=== PATIENT | male | born 1965 | race African-American/Black ===

== ENCOUNTER 2016-08-01 23:40 | Emergency (ER) ==
[2016-08-02] MEDS ORDERED: TORADOL PO ONE (00:41)
[2016-08-02] MEDS ORDERED: PEPCID PO ONE (00:41)
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
[2016-08-02 01:03] VITALS: BP 160/105
--- NOTE | 2016-08-02 09:15 | Diag Imaging Result Document ---
PROCEDURE NAME: SHOULDER-LEFT - 08/01/2016 PLAIN RADIOGRAPH OF THE LEFT SHOULDER 4 VIEWS: COMPARISON: Left clavicle radiograph dated 02/01/2014. FINDINGS: There are mild degenerative changes at the AC joint, stable. There is no definite fracture, dislocation, or intrinsic osseous lesion, otherwise. Surrounding soft tissues are essentially unremarkable. IMPRESSION: Stable degenerative changes involving the AC joint. No definite acute osseous abnormality.
== END 2016-08-02 01:02 | disposition home or self-care (01) ==
LOC: ED 23:40
DX: M25.512 Pain in left shoulder (principal); Y04.0XXA Assault by unarmed brawl or fight, initial encounter; F17.210 Nicotine dependence, cigarettes, uncomplicated; Z71.6 Tobacco abuse counseling; Z79.51 Long term (current) use of inhaled steroids
CPT/HCPCS: 99283